=== PATIENT | male | born 1945 | race Caucasian/White ===

== ENCOUNTER → 2019-01-12 | Outpatient (CLI) | payer OTHER | LOC: HYPER 06:48 | DX: L02.512 Cutaneous abscess of left hand (principal); I10 Essential (primary) hypertension; E78.5 Hyperlipidemia, unspecified; K21.9 Gastro-esophageal reflux disease without esophagitis; G47.33 Obstructive sleep apnea (adult) (pediatric); E55.9 Vitamin D deficiency, unspecified; R22.32 Localized swelling, mass and lump, left upper limb; E66.9 Obesity, unspecified; Z86.711 Personal history of pulmonary embolism; Z68.31 Body mass index [BMI] 31.0-31.9, adult; Z79.52 Long term (current) use of systemic steroids; Z94.0 Kidney transplant status; Z95.810 Presence of automatic (implantable) cardiac defibrillator; Z86.718 Personal history of other venous thrombosis and embolism; Z95.1 Presence of aortocoronary bypass graft; Z87.891 Personal history of nicotine dependence ==

== ENCOUNTER → 2019-01-19 | Outpatient (CLI) | payer OTHER | LOC: HYPER 07:00 | DX: L02.512 Cutaneous abscess of left hand (principal); I25.10 Atherosclerotic heart disease of native coronary artery without angina pectoris; I10 Essential (primary) hypertension; E78.5 Hyperlipidemia, unspecified; E55.9 Vitamin D deficiency, unspecified; E66.9 Obesity, unspecified; K21.9 Gastro-esophageal reflux disease without esophagitis; G47.33 Obstructive sleep apnea (adult) (pediatric); R22.32 Localized swelling, mass and lump, left upper limb; R73.01 Impaired fasting glucose; F51.04 Psychophysiologic insomnia; Z86.718 Personal history of other venous thrombosis and embolism; Z86.711 Personal history of pulmonary embolism; Z94.0 Kidney transplant status; Z68.31 Body mass index [BMI] 31.0-31.9, adult; Z79.52 Long term (current) use of systemic steroids; Z95.0 Presence of cardiac pacemaker; Z87.891 Personal history of nicotine dependence ==